=== PATIENT | female | born 1955 | race Caucasian/White ===

== ENCOUNTER 2023-09-17 16:41 | Emergency (ER) | payer MEDICARE, OTHER, SELFPAY ==
[2023-09-17 16:50] VITALS: BP 182/101
[2023-09-17 17:09] LABS: % Basophils 0.6 % (0-2); % Eosinophils 0.5 % (0-6); % Immature Granulocytes 0.6 % (0-0.5); % Lymphocytes 25.8 % (20.5-51.1); % Monocytes 8.9 % (1.7-9.3); % Neutrophils 63.6 % (42.2-75.2); Absolute Basophils 0.1 10^3/uL (0-0.2); Absolute Immature Granulocytes 0.1 10^3/uL (0-0.05); Absolute Lymphocytes 2.1 10^3/uL (1.2-3.4); Absolute Monocytes 0.7 10^3/uL (0.1-0.6); Absolute Neutrophils 5.3 10^3/uL (1.4-6.5); Hematocrit 45.3 % (37.0-47.0); Hemoglobin 15.5 g/dL (12.0-16.0); Mean Corp Hgb Conc. 34.2 g/dL (33.0-37.0); Mean Corpuscular Volume 90.6 fL (81.0-99.0); Mean Platelet Volume 9.1 fL (7.4-10.4); Nucleated Red Blood Cells % 0 %; Platelet Count 256 10^3/uL (130-400); Red Cell Dist. Width 12.2 % (11.5-14.5); White Blood Cell Count 8.3 10^3/uL (4.8-10.8)
[2023-09-17 17:14] LABS: Urine Albumin Trace (Neg - Trace); Urine Bilirubin Negative (Negative); Urine Character Clear (Clear); Urine Color Yellow; Urine Glucose 3+ (Negative); Urine Ketone 2+ (Negative); Urine Leukocyte 2+ (Negative); Urine Nitrite Negative (Negative); Urine Occult Blood Negative (Negative); Urine Specific Gravity 1.025 (<1.030); Urine Urobilinogen Negative (Neg - 1+)
[2023-09-17 17:20] LABS: Urine Squamous Cell 16-20 /LPF (Few)
[2023-09-17 17:21] LABS: Urine Red Blood Cell 0-2 /HPF (0-2)
[2023-09-17 17:22] LABS: Urine Bacteria Many (Negative)
[2023-09-17 17:23] LABS: Urine Mucus Few
[2023-09-17 17:35] LABS: Blood Urea Nitrogen 11 mg/dl (7-17); Calcium 9.9 mg/dl (8.4-10.2); Carbon Dioxide 27 mmol/L (22-30); Glucose 246 mg/dl (70-99); eGFR > 60.00
[2023-09-17 17:47] LABS: Chloride 101 mmol/L (98-107); Potassium 4.2 mmol/L (3.5-5.1); Sodium 139 mmol/L (135-145)
[2023-09-17 18:22] VITALS: BP 157/86
[2023-09-17] MEDS: GLUCOPHAGE 500 MG PO (18:54)
--- NOTE | 2023-09-17 19:02 | ED.GENMED ---
History of Present Illness
General
Chief Complaint: Urinary Symptoms
Source: patient
Exam Limitations: none
Time Seen by Provider: 09/17/23 17:28
History of Present Illness
History of Present Illness:
This is six 8-year-old female who has not seen primary care doctor in some time who presents with persistence of itching, dysuria, mild urinary frequency and pelvic irritation that has been ongoing since May. She has been seen by gynecology. She
was initially treated with oral antifungals. She was then given topical treatment. Subsequently she was treated with antibiotics. Most recently she was treated with Bactrim but then switched over to Augmentin. She has had no fevers but feels
that her symptoms have persisted. In addition she was concerned because her urinalysis showed glucose. The patient is a smoker. Again, has not had lab work or preventative care in some time.
Past History
Past History
ED Past Medical History: None
ED Past Surgical History: Appendectomy, Cholecystectomy and Tonsilectomy
Social History
Tobacco: Smoker (social, approx 1 pack/week)
Alcohol: Occasional
Drug: None
Personal:
Living: with family
Phy Exam
Physical Exam
Physical Exam:
CONSTITUTIONAL Patient alert and oriented to person, place and time. Well-appearing. Vital signs reviewed.
HEAD atraumatic, normocephalic.
EYES eyelids normal to inspection, Pupils equally round and reactive to light, Extraocular muscles intact, Conjunctiva normal, Sclera normal.
NECK normal range of motion, Trachea midline, no jugular venous distention.
RESPIRATORY CHEST No respiratory distress noted, Chest expansion equal, Bilateral breath sounds clear.
CARDIOVASCULAR regular rate and rhythm, Heart sounds normal.
ABDOMEN abdomen nontender, Bowel sounds normal. No distention.
BACK normal inspection, no obvious deformities, no CVA tenderness
UPPER EXTREMITY range of motion normal, Motor strength normal, no cyanosis, no edema.
LOWER EXTREMITY range of motion normal, Motor strength normal, no cyanosis, no edema.
NEURO Speech normal, No focal motor deficits, Yvette coma scale 15, Memory normal, Cranial Nerves intact to screening exam.
SKIN skin warm, dry, and normal in color.
PSYCHIATRIC patient oriented to person place and time, Normal affect.
Course
Orders/Labs/Results
Orders:
Orders
09/17/23 17:00
Basic Metabolic Panel Urgent
Complete Blood Count/With Diff Urgent
Glycohemoglobin (HgbA1c) Urgent
UA Reflex to Culture [Urinalysis Reflex To Culture] Urgent
Date Specimen was Collected: 09/17/23
Time Specimen was Collected: 16:54
Urine Microscopic Reflex Cult Urgent
Urine Culture Urgent
[place] Source: U
Specimen Description:
Date Specimen was Collected: 09/17/23
Time Specimen was Collected: 16:54
09/17/23 17:53
Vital Signs- Treatment ONCE
Frequency: Once
09/17/23 18:38
METFORMIN HCl [Glucophage] 500 mg PO NOW STA
09/17/23 18:57
Add On- LAB Urgent
Tests Added?: [id number]
Abnormal Lab Results
09/17/23
17:00
Abs Immat Gran (auto) 0.1 H 10^3/uL
(0-0.05)
Absolute Monos (auto) 0.7 H 10^3/uL
(0.1-0.6)
Immature Gran % 0.6 H %
(0-0.5)
Creatinine 0.5 L mg/dL
(0.6-1.0)
Glucose 246 H mg/dl
(70-99)
Urine Ketones 2+ A
(Negative)
Leukocyte Esterase Rfl 2+ A
(Negative)
Urine WBC (Reflex) 11-15 A /HPF
(0-5)
Urine Bacteria (Reflex) Many A
(Negative)
Urine Glucose 3+ A
(Negative)
09/17/23 17:00
09/17/23 17:00
Vital Signs
Initial and Last Documented VS:
Initial Vital Signs
Temp Pulse Resp BP Pulse Ox
98.1 F 98 18 182/101 97
09/17/23 16:50 09/17/23 16:50 09/17/23 16:50 09/17/23 16:50 09/17/23 16:50
Last Documented Vital Signs
Temp Pulse Resp BP Pulse Ox
98.1 F 95 16 157/86 96
09/17/23 16:50 09/17/23 18:22 09/17/23 18:22 09/17/23 18:22 09/17/23 18:22
MDM/Problems Addressed
MDM/Problems Addressed:
Hyperglycemia, glucosuria, pyuria
*Pulse Oximetry
Patient hypoxic: no
*Critical Care Note
Total Time (30-74mins, 75-104mins- exclusive of procedures): Not Applicable
Data Reviewed
Review of Other/Old Records Reveals: Labs (Patient presents with urine culture did show Klebsiella pneumonia a in her urine that was susceptible to both Bactrim and Augmentin)
Source: patient and family
Prescriptions/Medications Considered But Not Given:
Considered antibiotics (see below for discussion)
Patient Management
Escalation/DeEscalation of care consider admission/obs:
68-year-old female who has had ongoing symptoms since May. The patient is well-appearing and has no evidence of pyelonephritis or progressive urinary tract infection. She has been on a multitude of antibiotics. At this time I do not feel that
more antibiotics are necessary pending the urine culture. She is noted to be hyperglycemic and has had 3+ glucose in her urine on multitude of urinalysis studies. I suspect diabetes as a new diagnosis. She has no PCP at this time and therefore we
will start metformin for now but did advise diet and exercise as well. Blood pressure noted but states that it has been normal otherwise. I recommended close follow-up with an outpatient physician for repeat blood glucose, repeat blood pressure
and to follow-up cultures. The patient agrees
ED Attending Note
-
Portions of this chart may have been created with voice recognition software.� Occasional wrong word or��sound alike� substitutions may have occurred due to the inherent limitations of voice recognition software.
Discharge Plan
Departure
Patient Disposition: Home (Routine Discharge)
Date of Disposition: 09/17/23
Time of Disposition: 19:02
Patient with high blood pressure during this ER visit?: Yes
Discharge Problem:
Acute hyperglycemia, Dysuria
Instructions: High Blood Sugar, Adult ED, BLOOD PRESSURE
Prescriptions:
New
metformin 500 mg tablet
500 mg PO BID Qty: 60 0RF
Referrals:
[facility] [Provider Group]
NONE,* [Family Provider] -
Activity Restrictions/Additional Instructions:
Dysuria
Please drink plenty of water. Please avoid sugars as discussed. Please work on follow-up with a primary care physician. Return immediately for chest pain, fevers, back pain, vomiting, abdominal pain or any other concern. Your hemoglobin A1c and
urine culture is pending.
Interventions
Interventions:
*Risk Screen - Suicide Last Done: 09/17/23 17:33
*General Assessment Last Done: 09/17/23 17:33
*Neglect/Abuse Screening Last Done: 09/17/23 17:33
ED-Female Genitourinary Assessment Last Done: 09/17/23 17:33
Discharge Date and Time
Print Language: FRENCH
== END 2023-09-17 19:28 | disposition home or self-care (01) ==
LOC: EMR 16:41
PROVIDERS: EMERGENCY PHYSICIAN Emergency Medicine
DX: R73.9 Hyperglycemia, unspecified (principal); R30.0 Dysuria; F17.210 Nicotine dependence, cigarettes, uncomplicated; Z90.49 Acquired absence of other specified parts of digestive tract
CPT/HCPCS: 99283; 80048; 81003; 81015; 83036; 85025; 87086

== ENCOUNTER 2023-09-27 12:22 | Emergency (ER) | payer MEDICARE, OTHER, SELFPAY ==
[2023-09-27 12:25] VITALS: BP 149/106
[2023-09-27 12:53] LABS: % Basophils 0.6 % (0-2); % Eosinophils 0.7 % (0-6); % Immature Granulocytes 0.9 % (0-0.5); % Monocytes 5.2 % (1.7-9.3); % Neutrophils 66.6 % (42.2-75.2); Absolute Basophils 0.1 10^3/uL (0-0.2); Absolute Eosinophils 0.1 10^3/uL (0-0.7); Absolute Immature Granulocytes 0.1 10^3/uL (0-0.05); Absolute Lymphocytes 2.2 10^3/uL (1.2-3.4); Absolute Monocytes 0.4 10^3/uL (0.1-0.6); Absolute Neutrophils 5.6 10^3/uL (1.4-6.5); Hematocrit 44.1 % (37.0-47.0); Hemoglobin 15.4 g/dL (12.0-16.0); Mean Corp Hgb Conc. 34.9 g/dL (33.0-37.0); Mean Corpuscular Hgb 31.3 pg (27.0-31.0); Mean Corpuscular Volume 89.6 fL (81.0-99.0); Nucleated Red Blood Cells % 0 %; Red Blood Cell Count 4.92 10^6/uL (4.20-5.40); Red Cell Dist. Width 11.9 % (11.5-14.5); White Blood Cell Count 8.5 10^3/uL (4.8-10.8)
[2023-09-27 13:13] LABS: ALT (SGPT) 61 U/L (0-35); AST (SGOT) 47 U/L (14-36); Albumin 4.9 g/dl (3.5-5.0); Alkaline Phosphatase 79 U/L (38-126); Blood Urea Nitrogen 16 mg/dl (7-17); Calcium 10.1 mg/dl (8.4-10.2); Carbon Dioxide 20 mmol/L (22-30); Chloride 108 mmol/L (98-107); Glucose 173 mg/dl (70-99); Potassium 4.3 mmol/L (3.5-5.1); Sodium 139 mmol/L (135-145); Total Bilirubin 0.7 mg/dl (0.2-1.3); Total Protein 7.2 g/dl (6.3-8.2); eGFR > 60.00
[2023-09-27 13:23] LABS: Platelet Count 294 10^3/uL (130-400)
[2023-09-27] MEDS: TYLENOL 650 MG PO (16:03)
--- NOTE | 2023-09-27 16:08 | ED.GENMED ---
History of Present Illness
General
Chief Complaint: Abnormal Lab Value
Source: patient
Exam Limitations: none
Time Seen by Provider: 09/27/23 15:10
Nursing documentation reviewed up to this point in time: agreed with
History of Present Illness
History of Present Illness:
Patient diagnosed with possibly new onset diabetes and started on metformin last week, presents to ED for evaluation secondary to blood work results from last week, hemoglobin A1c, and came back really high. Patient's friends who are in 'medical
profession' told her hemoglobin greater than 10 can be dangerous and she need to be checked out. In addition, as patient has had intermittent headache and blurry vision over the past week, her primary care physician with whom she has an appointment
tomorrow, also felt that she needed to be checked in the emergency department today. Of note, over the weekend, patient states that she was 'really sick', with flulike symptoms, but now feels improved. Otherwise, denies dizziness. Denies loss of
sensation or weakness. Denies difficulty with ambulation. Denies difficulty with speech. 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
Past History
Past History
ED Past Medical History: None
ED Past Surgical History: Appendectomy, Cholecystectomy and Tonsilectomy
Social History
Tobacco: Smoker (social, approx 1 pack/week)
Alcohol: Occasional
Drug: None
Personal:
Living: with family
Review of Systems
Review of Systems
Allergies reviewed?: Yes
All Other Systems: ROS reviewed and negative except as documented in HPI and ROS
Constitutional: Reports no symptoms
EENT: Reports no symptoms
Respiratory: Reports no symptoms
Cardiac: Reports no symptoms
ABD/GI: Reports no symptoms
: Reports no symptoms
Musculoskeletal: Reports muscle pain
Skin: Reports no symptoms
Neurological: Reports headache and other (blurred vision)
Phy Exam
Physical Exam
Physical Exam:
Physical Exam
General: no apparent distress, not acutely ill. afebrile
Head: nc/at. eomi
Neck: supple. no meningeal signs.
Heart: s1/s2 regular rate and rhythm, no murmur. equal radial pulses.
Lungs: no acute respiratory distress. clear bilaterally
Abdomen: normal bowel sounds. not tender.
Neuro: alert and oriented. no focal neurological deficits. normal speech. normal gait.
Skin: no rash
Psychiatric: well kept. interactive and cooperative
Extremities: no edema. no calf tenderness.
Course
Orders/Labs/Results
Orders:
Orders
09/27/23 12:38
CMP [Comprehensive Metabolic Panel] Urgent
Complete Blood Count/With Diff Urgent
09/27/23 15:31
Acetaminophen [Tylenol] 650 mg PO NOW STA
09/27/23 15:32
CT Head W/o Iv Contrast Urgent
Comment:
Reason For Exam: headache with blurred vision
Abnormal Lab Results
09/27/23
12:38
MCH 31.3 H pg
(27.0-31.0)
Abs Immat Gran (auto) 0.1 H 10^3/uL
(0-0.05)
Immature Gran % 0.9 H %
(0-0.5)
Chloride 108 H mmol/L
(98-107)
Carbon Dioxide 20 L mmol/L
(22-30)
Creatinine 0.5 L mg/dL
(0.6-1.0)
Glucose 173 H mg/dl
(70-99)
AST 47 H U/L
(14-36)
ALT 61 H U/L
(0-35)
09/27/23 12:38
09/27/23 12:38
Vital Signs
Initial and Last Documented VS:
Initial Vital Signs
Temp Pulse Resp BP Pulse Ox
98.1 F 90 18 149/106 94
09/27/23 12:25 09/27/23 12:25 09/27/23 12:25 09/27/23 12:25 09/27/23 12:25
Last Documented Vital Signs
Temp Pulse Resp BP Pulse Ox
98.1 F 79 18 159/84 95
09/27/23 12:25 09/27/23 17:21 09/27/23 17:21 09/27/23 17:21 09/27/23 17:21
MDM/Problems Addressed
MDM/Problems Addressed:
CT head: no acute findings.
Patient otherwise remains afebrile, hemodynamically stable, neurologically intact, without any acute distress, during prolonged course of observation ED. Patient will continue to take already prescribed metformin and follow-up with her primary care
physician tomorrow for reevaluation.
*Critical Care Note
Total Time (30-74mins, 75-104mins- exclusive of procedures): Not Applicable
ED Attending Note
-
Portions of this chart may have been created with voice recognition software.� Occasional wrong word or��sound alike� substitutions may have occurred due to the inherent limitations of voice recognition software.
Discharge Plan
Departure
Patient Disposition: Home (Routine Discharge)
Date of Disposition: 09/27/23
Time of Disposition: 17:15
Patient with high blood pressure during this ER visit?: Yes
Discharge Problem:
Diabetes, Viral illness
Instructions: Type 2 diabetes, Diabetes and diet
Prescriptions:
No Action
metformin 500 mg tablet
500 mg PO BID Qty: 60 0RF
Referrals:
Moni Mathews PA-C [Family Provider] -
Activity Restrictions/Additional Instructions:
As discussed, please follow-up with your primary care physician tomorrow as scheduled, for continual evaluation and treatment.
Interventions
Interventions:
*Risk Screen - Suicide Last Done: 09/27/23 15:13
*General Assessment Last Done: 09/27/23 15:13
*Neglect/Abuse Screening Last Done: 09/27/23 15:13
ED- Fall Risk Assessment Last Done: 09/27/23 17:25
*ED COVID-19 Vaccine History Last Done: 09/27/23 15:13
*Nursing Disposition Last Done: 09/27/23 17:25
Discharge Date and Time
Discharge Date/Time: 09/27/23 17:26
Print Language: [id number]
[2023-09-27 17:21] VITALS: BP 159/84
== END 2023-09-27 17:26 | disposition home or self-care (01) ==
LOC: EMR 12:22
PROVIDERS: Emergency Medicine; EMERGENCY PHYSICIAN Emergency Medicine; FAMILY PHYSICIAN Physician Assistant
DX: B34.9 Viral infection, unspecified (principal); E11.9 Type 2 diabetes mellitus without complications; F17.210 Nicotine dependence, cigarettes, uncomplicated; R03.0 Elevated blood-pressure reading, without diagnosis of hypertension
CPT/HCPCS: 99284; 70450; 80053; 85025